=== PATIENT | female | born 1980 | race Caucasian/White ===

== ENCOUNTER 2022-12-09 22:19 | Emergency (ER) | payer BC ==
[~2022-12-09] VITALS: Ht 170.2 cm; Wt 74.0 kg
[2022-12-09 22:46] VITALS: BP 126/57
[2022-12-09] MEDS ORDERED: ACETAMINOPHEN 325MG TABLET PO STA (22:57)
[2022-12-09 23:21] LABS: CLARITY URINE CLEAR (CLEAR); COLOR URINE YELLOW (YELLOW); KETONES URINE NEGATIVE (NEGATIVE); LEUKOCYTE ESTERASE URINE NEGATIVE (NEGATIVE); NITRITE URINE NEGATIVE (NEGATIVE); OCCULT BLOOD URINE 1+ (NEGATIVE); PH URINE 5.5 (4.5-8.0); PROTEIN URINE NEGATIVE (NEGATIVE); UROBILINOGEN URINE 0.2 E.U./dL (0.2-1.0)
[2022-12-09 23:23] LABS: BASOPHILS % 0.7 % (0.0-2.0); HEMATOCRIT. 39.6 % (36.0-48.0); HEMOGLOBIN. 13.2 g/dL (12.0-16.0); LYMPHOCYTES % 29.8 % (20.0-50.0); MEAN CORPUSCULAR HEMOGLOBIN 31.8 pg (28.0-32.0); MEAN CORPUSCULAR VOLUME 95.1 fL (81.0-99.0); MONOCYTES % 6.7 % (2.0-8.0); NEUTROPHILS % 59.8 % (40.0-76.0); PLATELET 225 x1000/uL (130-400); RED BLOOD CELL COUNT 4.16 mill/uL (4.2-5.4); RED CELL DISTRIBUTION WIDTH 15.6 % (11.6-14.6)
[2022-12-09 23:30] LABS: CHLORIDE 105 mEq/L (98-107)
[2022-12-09 23:41] LABS: B-HCG QUANTITATIVE < 1 mIU/mL (<3)
[2022-12-10] MEDS ORDERED: ACET-2708 MT (00:31)
== END 2022-12-10 01:10 | disposition home or self-care (01) ==
LOC: ER 22:19
DX: R10.11 Right upper quadrant pain (principal)
CPT/HCPCS: 36415; 76705; 76830; 76856; 80053; 81003; 81025; 84702; 85025; 99284